=== PATIENT | male | born 1945 | race African-American/Black ===

== ENCOUNTER 2016-09-08 09:43 | Emergency (ER) | payer MEDICARE, BC, OTHER ==
--- NOTE | 2016-09-08 10:35 | ER Document Report ---
ED Wound - General Chief Complaint: Post Surgical Bleeding Stated Complaint: KNEE PAIN Information source: Patient Notes: 70-year-old male status post left knee replacement on September 04 with a little bit of bleeding from the site last night. Patient is on Xarelto secondary to atrial fibrillation. Patient denies any swelling, pain above baseline over the last 24 hours, fever, or vomiting. He denies any weakness or numbness of the leg, lightheadedness, or chest pain. TRAVEL OUTSIDE OF THE [place] IN LAST 30 DAYS: No - HPI Patient complains to provider of: Other - See above Occurred: Other - See above Onset/Duration: Sudden Quality of pain: Other - See above Severity: Mild Pain Level: Denies Context: Other - See above Skin Color: Normal Capillary refill: < 3 seconds Sensations intact: Yes Distal pulses present: Yes - Related Data Allergies/Adverse Reactions: No Known Allergies Allergy (Verified 01/31/16 13:36) Past Medical History - Social History Smoking Status: Never Smoker Chew tobacco use (# tins/day): No Frequency of alcohol use: None Drug Abuse: None Family History: Reviewed & Not Pertinent Patient has suicidal ideation: No Patient has homicidal ideation: No - Past Medical History Cardiac Medical History: Reports: Hx Atrial Fibrillation, Hx Hypercholesterolemia, Hx Hypertension Endocrine Medical History: Reports: Hx Diabetes Mellitus Type 2 Renal/ Medical History: Denies: Hx Peritoneal Dialysis Past Surgical History: Reports: Hx Appendectomy - 1974, Hx Cardiac Catheterization - balloon, Hx Cardiac Surgery - bypass 2005, Hx Orthopedic Surgery - knee 09/2016 - Immunizations Hx Pneumococcal Vaccination: 07/04/15 Physical Exam - Vital signs Vitals: Temp Pulse Resp BP Pulse Ox 97.9 F 77 18 124/63 99 09/08/16 09:56 09/08/16 09:56 09/08/16 09:56 09/08/16 09:56 09/08/16 09:56 Notes: Reviewed vital signs and nursing note as charted by RN. CONSTITUTIONAL: Alert and oriented and responds appropriately to questions. Well -appearing; well-nourished EXT: I removed the bandage of the patient's left knee replacement scar. Patient has homero that are all intact. Extremely small pinpoint bleed from around the staple sections. No swelling, erythema, or induration noted. Left calf is nontender. Neurovascularly intact distally. Course - Re-evaluation Re-evalutation: 09/08/16 10:34 Given the history and physical examination, I do not believe the patient requires any acute intervention at this time. I have held pressure and this seems to have resolved the bleeding. We will place a small 4 x 4 underneath the knee bandaged with strict return precautions and follow-up with orthopedics. - Vital Signs Vital signs: Temp Pulse Resp BP Pulse Ox 97.9 F 77 18 124/63 99 09/08/16 09:56 09/08/16 09:56 09/08/16 09:56 09/08/16 09:56 09/08/16 09:56 Discharge - Discharge Clinical Impression: Bleeding from wound Condition: Good Disposition: HOME, SELF-CARE Additional Instructions: Come back immediately with any increased pain, leg swelling, fever, drainage, leading, or any other acute problems. Please follow-up with orthopedics as we have discussed.
[2016-09-08 14:01] VITALS: BP 122/88
== END 2016-09-08 11:10 | disposition home or self-care (01) ==
LOC: ER 09:43
DX: M96.830 Postprocedural hemorrhage of a musculoskeletal structure following a musculoskeletal system procedure (principal); M25.562 Pain in left knee; I48.91 Unspecified atrial fibrillation; E78.00 Pure hypercholesterolemia, unspecified; I10 Essential (primary) hypertension; E11.9 Type 2 diabetes mellitus without complications; Z96.652 Presence of left artificial knee joint; Z79.02 Long term (current) use of antithrombotics/antiplatelets; Z95.1 Presence of aortocoronary bypass graft
CPT/HCPCS: 99283

== ENCOUNTER → 2017-01-07 | Outpatient (CLI) | payer BC, MEDICARE, OTHER ==
[2017-01-07 09:17] LABS: ALANINE AMINOTRANSFERASE 30 U/L (21-72); ALKALINE PHOSPHATASE 64 U/L (38-126); ANION GAP 10 (5-19); ASPARTATE AMINO TRANSFERASE 27 U/L (17-59); BILIRUBIN,DIRECT 0.3 mg/dL (0.0-0.4); BILIRUBIN,TOTAL 0.4 mg/dL (0.2-1.3); BLOOD UREA NITROGEN 15 mg/dL (7-20); CALCIUM 9.7 mg/dL (8.4-10.2); CARBON DIOXIDE 27 mmol/L (22-30); CHLORIDE 103 mmol/L (98-107); CHOLESTEROL 149.79 mg/dL (0-200); CREATININE RESULT 0.88 mg/dL (0.52-1.25); Direct HDL 55 mg/dL (>40); GLUCOSE 105 mg/dL (75-110); POTASSIUM 4.4 mmol/L (3.6-5.0); SODIUM 140.4 mmol/L (137-145); TOTAL PROTEIN 7.7 g/dL (6.3-8.2); TRIGLYCERIDES 60 mg/dL (<150)
[2017-01-07 09:28] LABS: DIRECT LDL 65 mg/dL (<100)
== END ==
LOC: OD 07:50
PROVIDERS: ATTEND Internal Medicine
DX: I10 Essential (primary) hypertension (principal); I25.118 Atherosclerotic heart disease of native coronary artery with other forms of angina pectoris; E11.9 Type 2 diabetes mellitus without complications; E78.4 Other hyperlipidemia; Z79.899 Other long term (current) drug therapy; I34.1 Nonrheumatic mitral (valve) prolapse; I36.1 Nonrheumatic tricuspid (valve) insufficiency; Z95.1 Presence of aortocoronary bypass graft; R06.02 Shortness of breath
CPT/HCPCS: 36415; 80053; 80061

== ENCOUNTER → 2017-02-14 | Outpatient (CLI) | payer BC, MEDICARE, OTHER ==
[2017-02-14 08:03] LABS: ABSOLUTE EOSINOPHILS # (AUTO) 0.2 10^3/uL (0.0-0.6); ABSOLUTE LYMPHOCYTES (AUTO) 1.6 10^3/uL (0.5-4.7); ABSOLUTE MONOCYTES (AUTO) 0.5 10^3/uL (0.1-1.4); ABSOLUTE NEUT (AUTO) 1.8 10^3/uL (1.7-8.2); BASOPHILS % (AUTO) 0.6 % (0-2); EOSINOPHILS % (AUTO) 3.7 % (0-6); HEMATOCRIT 37.7 % (37.9-51.0); HEMOGLOBIN 12.2 g/dL (13.5-17.0); HGB HCT DIFFERENCE -1.1; LYMPHOCYTES % (AUTO) 39.5 % (13-45); MEAN CORPUSCULAR HEMOGLOBIN 28.4 pg (27.0-33.4); MEAN CORPUSCULAR HGB CONC 32.5 g/dL (32.0-36.0); MEAN CORPUSCULAR VOLUME 87 fl (80-97); MONOCYTES % (AUTO) 12.9 % (3-13); RED BLOOD COUNT 4.32 10^6/uL (4.35-5.55); RED CELL DISTRIBUTION WIDTH 16.1 % (11.5-14.0); SEGMENTED NEUTROPHILS % (AUTO) 43.3 % (42-78); WHITE BLOOD COUNT 4.2 10^3/uL (4.0-10.5)
[2017-02-14 08:37] LABS: ALANINE AMINOTRANSFERASE 28 U/L (21-72); ALBUMIN 4.2 g/dL (3.5-5.0); ALKALINE PHOSPHATASE 63 U/L (38-126); ANION GAP 9 (5-19); ASPARTATE AMINO TRANSFERASE 28 U/L (17-59); BILIRUBIN,DIRECT 0.3 mg/dL (0.0-0.4); BILIRUBIN,TOTAL 0.5 mg/dL (0.2-1.3); BLOOD UREA NITROGEN 19 mg/dL (7-20); CALCIUM 9.6 mg/dL (8.4-10.2); CARBON DIOXIDE 28 mmol/L (22-30); CHLORIDE 104 mmol/L (98-107); CREATININE RESULT 0.89 mg/dL (0.52-1.25); GLUCOSE 113 mg/dL (75-110); POTASSIUM 4.2 mmol/L (3.6-5.0); SODIUM 141.4 mmol/L (137-145); TOTAL PROTEIN 7.7 g/dL (6.3-8.2)
== END ==
LOC: OD 07:31
PROVIDERS: ATTEND Internal Medicine Cardiovascular Disease
DX: Z51.81 Encounter for therapeutic drug level monitoring (principal); Z79.899 Other long term (current) drug therapy; I48.1 Persistent atrial fibrillation; Z79.01 Long term (current) use of anticoagulants
CPT/HCPCS: 36415; 80053; 85025

== ENCOUNTER → 2019-10-22 | Outpatient (CLI) | payer BC, MEDICARE, OTHER ==
[2019-10-22 08:44] LABS: ALBUMIN 4.1 g/dL (3.5-5.0); ALKALINE PHOSPHATASE 56 U/L (38-126); ASPARTATE AMINO TRANSFERASE 36 U/L (17-59); BILIRUBIN,DIRECT 0.2 mg/dL (0.0-0.4); BILIRUBIN,TOTAL 0.4 mg/dL (0.2-1.3); CHOLESTEROL 143.73 mg/dL (0-200); TOTAL PROTEIN 6.9 g/dL (6.3-8.2); TRIGLYCERIDES 60 mg/dL (<150)
[2019-10-22 08:55] LABS: DIRECT LDL 76 mg/dL (<100)
== END ==
LOC: OD 07:28
PROVIDERS: ATTEND Specialist
DX: I48.0 Paroxysmal atrial fibrillation (principal); I34.1 Nonrheumatic mitral (valve) prolapse; I10 Essential (primary) hypertension; E78.49 Other hyperlipidemia; E11.9 Type 2 diabetes mellitus without complications; I25.10 Atherosclerotic heart disease of native coronary artery without angina pectoris; Z95.1 Presence of aortocoronary bypass graft; I36.1 Nonrheumatic tricuspid (valve) insufficiency; Z79.899 Other long term (current) drug therapy
CPT/HCPCS: 36415; 80061; 80076; 83036

== ENCOUNTER 2020-07-29 11:30 | Emergency (ER) | payer BC, MEDICARE, OTHER ==
--- NOTE | 2020-07-29 12:44 | ER Document Report ---
ED Medical Screen (RME) - General Chief Complaint: Chest Pain Stated Complaint: CHEST PAIN Time Seen by Provider: 07/29/20 12:40 Primary Care Provider: GIL GUTIERREZ MD [Primary Care Provider] - Follow up as needed Mode of Arrival: Ambulatory Information source: Patient Notes: 74-year-old male presented to ED for complaint of chest pain for the last 3 to 4 days. He states is intermittent and comes and goes. He states he does have a history of a heart cath and then a bypass in 2005. He states he does not smoke he does drink 2 glasses of wine a day does not do drugs. He states his security systems technician Dr. Champagne told him to come to the emergency room. He is alert oriented respirations regular nonlabored speaking in full sentences. I have greeted and performed a rapid initial assessment of this patient. A comprehensive ED assessment and evaluation of the patient, analysis of test results and completion of medical decision making process will be conducted by an additional ED providers. TRAVEL OUTSIDE OF THE [place] IN LAST 30 DAYS: No - Related Data Allergies/Adverse Reactions: No Known Allergies Allergy (Verified 01/31/16 13:36) Past Medical History - Past Medical History Cardiac Medical History: Reports: Hx Atrial Fibrillation, Hx Hypercholesterolemia, Hx Hypertension Endocrine Medical History: Reports: Hx Diabetes Mellitus Type 2 Renal/ Medical History: Denies: Hx Peritoneal Dialysis Past Surgical History: Reports: Hx Appendectomy - 1974, Hx Cardiac Catheterization - balloon, Hx Cardiac Surgery - bypass 2005, Hx Orthopedic S urgery - knee 09/2016 Physical Exam - Vital signs Vitals: Temp Pulse Resp BP Pulse Ox 97.8 F 56 L 20 143/76 H 99 07/29/20 11:42 07/29/20 11:42 07/29/20 11:42 07/29/20 11:42 07/29/20 11:42 Course - Vital Signs Vital signs: Temp Pulse Resp BP Pulse Ox 97.8 F 56 L 20 143/76 H 99 07/29/20 11:42 07/29/20 11:42 07/29/20 11:42 07/29/20 11:42 07/29/20 11:42 Doctor's Discharge - Discharge Referrals: GIL GUTIERREZ MD [Primary Care Provider] - Follow up as needed
--- NOTE | 2020-07-29 13:15 | RADIOLOGY REPORT (SQ) ---
EXAM DESCRIPTION: CHEST 2 VIEWS IMAGES COMPLETED DATE/TIME: 07/29/2020 11:57 am REASON FOR STUDY: Chest pain previous heart cath and bypass in 2005 COMPARISON: 01/31/2016 EXAM PARAMETERS: NUMBER OF VIEWS: two views TECHNIQUE: Digital Frontal and Lateral radiographic views of the chest acquired. RADIATION DOSE: NA LIMITATIONS: none FINDINGS: LUNGS AND PLEURA: No opacities, masses or pneumothorax. No pleural effusion. MEDIASTINUM AND HILAR STRUCTURES: No masses or contour abnormalities. HEART AND VASCULAR STRUCTURES: Heart normal size. No evidence for failure. BONES: No acute findings. HARDWARE: None in the chest. OTHER: No other significant finding. IMPRESSION: NO ACUTE RADIOGRAPHIC FINDING IN THE CHEST. TECHNICAL DOCUMENTATION: JOB ID: [id number] 2010 [employer] – [employer]- All Rights Reserved Reading location - IP/workstation name: [id number]
[2020-07-29 13:41] LABS: ABSOLUTE EOSINOPHILS # (AUTO) 0.1 10^3/uL (0.0-0.6); ABSOLUTE LYMPHOCYTES (AUTO) 2.2 10^3/uL (0.5-4.7); ABSOLUTE MONOCYTES (AUTO) 0.6 10^3/uL (0.1-1.4); ABSOLUTE NEUT (AUTO) 1.5 10^3/uL (1.7-8.2); BASOPHILS % (AUTO) 0.7 % (0-2); HEMATOCRIT 40.1 % (37.9-51.0); HEMOGLOBIN 13.6 g/dL (13.5-17.0); LYMPHOCYTES % (AUTO) 49.3 % (13-45); MEAN CORPUSCULAR HGB CONC 33.9 g/dL (32.0-36.0); MEAN CORPUSCULAR VOLUME 89 fl (80-97); MONOCYTES % (AUTO) 12.9 % (3-13); PLATELET COUNT 226 10^3/uL (150-450); RED BLOOD COUNT 4.53 10^6/uL (4.35-5.55); RED CELL DISTRIBUTION WIDTH 13.6 % (11.5-14.0); SEGMENTED NEUTROPHILS % (AUTO) 34.1 % (42-78); TOTAL CELLS COUNTED % (AUTO) 100 %; WHITE BLOOD COUNT 4.4 10^3/uL (4.0-10.5)
[2020-07-29 13:53] LABS: ALBUMIN 4.5 g/dL (3.5-5.0); ALKALINE PHOSPHATASE 68 U/L (38-126); ANION GAP 6 (5-19); ASPARTATE AMINO TRANSFERASE 34 U/L (17-59); BILIRUBIN,DIRECT 0.1 mg/dL (0.0-0.4); BILIRUBIN,TOTAL 0.5 mg/dL (0.2-1.3); BLOOD UREA NITROGEN 15 mg/dL (7-20); CALCIUM 9.9 mg/dL (8.4-10.2); CARBON DIOXIDE 31 mmol/L (22-30); CHLORIDE 100 mmol/L (98-107); GLUCOSE 111 mg/dL (75-110); POTASSIUM 4.7 mmol/L (3.6-5.0); TOTAL PROTEIN 8.2 g/dL (6.3-8.2)
--- NOTE | 2020-07-29 20:16 | ER Document Report ---
ED Cardiac - General Chief Complaint: Chest Pain Stated Complaint: CHEST PAIN Time Seen by Provider: 07/29/20 12:40 Primary Care Provider: GIL GUTIERREZ MD [ACTIVE STAFF] - 07/31/20 Mode of Arrival: Ambulatory Notes: Patient is a 74-year-old female who presents to the emergency department with chest pain that started about 4 days ago. Describes his pain as a "gas bubble feeling" in the middle of his chest. States that he took some Prevacid last night and it helped with the pain. Denies any pain at this time. Patient has a history of a coronary artery bypass graft. Patient's market research manager is Dr. Gutierrez. TRAVEL OUTSIDE OF THE [place] IN LAST 30 DAYS: No - Related Data Allergies/Adverse Reactions: No Known Allergies Allergy (Verified 01/31/16 13:36) Past Medical History - General Information source: Patient - Social History Smoking Status: Unknown if Ever Smoked Family History: Reviewed & Not Pertinent - Past Medical History Cardiac Medical History: Reports: Hx Atrial Fibrillation, Hx Hypercholesterolemia, Hx Hypertension Endocrine Medical History: Reports: Hx Diabetes Mellitus Type 2 Renal/ Medical History: Denies: Hx Peritoneal Dialysis Past Surgical History: Reports: Hx Appendectomy - 1974, Hx Cardiac Catheterization - balloon, Hx Cardiac Surgery - bypass 2005, Hx Orthopedic Surgery - knee 09/2016 - Immunizations Hx Pneumococcal Vaccination: 07/04/15 Review of Systems - Review of Systems Notes: REVIEW OF SYSTEMS: CONSTITUTIONAL : Denies recent illness. Denies recent unintentional weight loss. Denies fever, chills, or sweats. EENT: Denies eye, ear, throat, or mouth pain, discharge, or symptoms. Denies nasal or sinus congestion. CARDIOVASCULAR: See HPI. RESPIRATORY: Denies shortness of breath, cough, congestion, difficulty breathing, or wheezing. GASTROINTESTINAL: Denies nausea, vomiting, and diarrhea. Denies abdominal pain. Denies constipation. GENITOURINARY: Denies difficulty urinating, burning, blood in urine, urgency or frequency. MUSCULOSKELETAL: Denies neck and back pain. Denies joint pain or swelling. SKIN: Denies rash, itchiness, or lesions HEMATOLOGIC : Denies easy bruising or bleeding. LYMPHATIC: Denies swollen, painful, enlarged glands. NEUROLOGICAL: Denies no numbness or tingling denies weakness. Denies headache. Denies altered mental status. Denies alteration in speech. PSYCHIATRIC: Denies stress, anxiety, alteration in sleep patterns, or depression. All other systems reviewed and negative. Physical Exam - Vital signs Vitals: Temp Pulse Resp BP Pulse Ox 97.8 F 56 L 20 143/76 H 99 07/29/20 11:42 07/29/20 11:42 07/29/20 11:42 07/29/20 11:42 07/29/20 11:42 - Notes Notes: PHYSICAL EXAMINATION: GENERAL: Appears well, healthy, well-nourished, no acute distress. HEAD: Normocephalic, atraumatic. EYES: PERRL, conjunctiva normal, all extraocular movements intact, sclera nonicteric ENT: Moist mucous membranes. NECK: Supple, no noticeable swelling, redness, rash. Normal range of motion. LUNGS: Equal breath sounds bilaterally and clear to auscultation. No wheezes rales or rhonchi. CARDIOVASCULAR: S1-S2, regular rate, regular rhythm. Radial pulses 2+, normal. ABDOMEN: Normoactive bowel sounds. Soft, nontender, no guarding, no rebound tenderness, and no masses palpated. EXTREMITIES: Normal strength and range of motion, no pitting or edema. No cyanosis. NEUROLOGICAL: Moves all extremities upon command. Strength 5/5 in all extremities. PSYCH: Normal mood, normal affect. SKIN: Warm, dry. No rash, lesions, ulcerations noted. Normal skin turgor. Course - Re-evaluation Re-evalutation: 07/29/20 20:41 Hematology is unremarkable. Chemistries are also unremarkable. Initial troponin done at 1300 is unremarkable. Will repeat troponin. Chest x-ray negative. The provider in triage spoke with Dr. Gutierrez and he would like the patient to follow-up with him on Friday. 07/29/20 21:[address] Gutierrez, the patient's market research manager. Repeat troponin was 0.022. Discussed this result with him. He would like to give him 1 dose of nitroglycerin and start the patient on isosorbide mononitrate 30 mg. He still wants the patient to follow-up with him at 1230 on Friday. Spoke with patient. Patient denies any pain. Patient is in agreement with this plan. Follow-up precautions were given. Verbal discharge instructions were given to the patient. They verbalized understanding. They are stable for discharge. - Vital Signs Vital signs: Temp Pulse Resp BP Pulse Ox 98.2 F 63 18 141/75 H 100 07/29/20 22:21 07/29/20 22:21 07/29/20 22:21 07/29/20 22:21 07/29/20 22:21 - Laboratory Results Result Diagrams: 07/29/20 13:00 07/29/20 13:00 Laboratory Results Interpreted: 07/29/20 07/29/20 13:00 13:00 Lymph % (Auto) 49.3 H Absolute Neuts (auto) 1.5 L Seg Neutrophils % 34.1 L Carbon Dioxide 31 H Glucose 111 H Critical Laboratory Results Reviewed: No Critical Results - Radiology Results Critical Radiology Results Reviewed: No Critical Results - EKG Interpretation by Me Additional EKG results interpreted by me: 07/29/20 21:06 Sinus arrhythmia. Rate 54. SC 188; QRS 90; QT 472; QTc 448. No ST elevations or depressions noted. 07/29/20 21:20 Repeat EKG shows sinus rhythm with premature atrial contractions. No change from previous EKG done earlier today. Discharge - Discharge Clinical Impression: Chest pain Qualifiers: Chest pain type: unspecified Qualified Code(s): R07.9 - Chest pain, unspecified Condition: Stable Disposition: HOME, SELF-CARE Additional Instructions: You were seen today in emergency department for chest pain. Your work-up here in the emergency department is normal. This is very reassuring. Please follow- up with Dr. Gutierrez on Friday at 12:30 as discussed. You can take [id number] acid reflux medication, as this appears to have worked well for you. Take it every day. If you experience any chest pain, take the nitroglycerin, 1 tablet under your tongue, every 5 minutes as needed[address] Call Dr. Gutierrez if you need to take your nitroglycerin. Take the blood pressure medication and continue your current blood pressure m edications. Prescriptions: Isosorbide Mononitrate [Imdur 30 mg Tablet.er] 30 mg PO DAILY #30 tab.er.24h Referrals: GIL GUTIERREZ MD [ACTIVE STAFF] - 07/31/20
[2020-07-29] MEDS ORDERED: NITROGLYCERIN 0.4 MG/TAB 25 TAB/BOTTLE SL ONE (21:26)
--- NOTE | 2020-07-29 22:05 | EKG REPORT ---
SEVERITY:- ABNORMAL ECG - SINUS RHYTHM ATRIAL PREMATURE COMPLEX LEFT VENTRICULAR HYPERTROPHY : Confirmed by: Anders Ortiz MD 29-Jul-2020 22:04:36
--- NOTE | 2020-07-29 22:05 | EKG REPORT ---
SEVERITY:- OTHERWISE NORMAL ECG - SINUS ARRHYTHMIA, RATE 48-67 BORDERLINE LEFT AXIS DEVIATION : Confirmed by: Anders Ortiz MD 29-Jul-2020 22:05:01
[2020-07-29 22:24] VITALS: BP 141/75
== END 2020-07-29 22:23 | disposition home or self-care (01) ==
LOC: ER 11:30
DX: R07.9 Chest pain, unspecified (principal); I48.91 Unspecified atrial fibrillation; E78.00 Pure hypercholesterolemia, unspecified; I10 Essential (primary) hypertension; E11.9 Type 2 diabetes mellitus without complications; Z95.1 Presence of aortocoronary bypass graft
CPT/HCPCS: 36415; 71046; 80053; 83735; 84484; 85025; 93005; 93010; 99285